=== PATIENT | female | born 1985 | race Asian ===

== ENCOUNTER 2018-09-01 22:18 | Emergency (ER) | payer OTHER ==
[~2018-09-01] VITALS: Ht 160 cm; Wt 88.9 kg
[2018-09-01 22:26] VITALS: BP 114/74
[2018-09-01] MEDS ORDERED: ACETAMINOPHEN 325 MG TAB PO ONE (22:30)
--- NOTE | 2018-09-01 22:37 | NUR ---
PT TAKEN TO BED 8
--- NOTE | 2018-09-01 22:55 | NUR ---
C/O SORETHROAT AND TORRES X 2 DAYS W/ WEAKNESS X 12 HOURS.PT DENIES N/V/D; SKIN IS INTACT, PALE/WARM/DRY; AAOX4, PERRL, WITH EVEN AND STEADY GAIT; LUNGS CLEAR BL, BREATHING UNLABORED; HR EVEN AND REGULAR, BL PERIPHERAL PULSES PRESENT; BS ACTIVE X4, NO TENDERNESS TO PALPATION. PT DENIES ANY SOB, OR COUGH AT THIS TIME; PT STATES 5/10 PAIN AT THIS TIME; VSS; PATIENT POSITIONED FOR COMFORT; HOB ELEVATED; BEDRAILS UP X2; BED DOWN.
--- NOTE | 2018-09-01 23:41 | NUR ---
Dr. Plascencia evaluating patient at bedside.
[2018-09-01] MEDS ORDERED: NACL 0.9% 1,000 ML IV ONE (23:50)
[2018-09-01] MEDS ORDERED: ONDANSETRON 4 MG/2 ML VIAL IVP ONE (23:50)
[2018-09-01] MEDS ORDERED: KETOROLAC 30 MG/ML VIAL IVP ONE (23:50)
--- NOTE | 2018-09-02 01:14 | NUR ---
Patient discharged with v/s stable. Written and verbal after care instructions given and explained. Patient alert, oriented and verbalized understanding of instructions. Ambulatory with steady gait. All questions addressed prior to discharge. ID band removed. Patient advised to follow up with PMD. Rx of TAMIFLU 75MG, PRENISONE 20MG, ZOFRAN 8MG, MOTRIN 800MG, NORCO 5MG-325MG given. Patient educated on indication of medication including possible reaction and side effects. Opportunity to ask questions provided and answered.
[2018-09-02 01:16] VITALS: BP 94/52
== END 2018-09-02 01:14 | disposition home or self-care (01) ==
LOC: MED 22:18
DX: J11.1 Influenza due to unidentified influenza virus with other respiratory manifestations (principal)
CPT/HCPCS: 96374; 96375; 99283; J1885; J2405; J7030

== ENCOUNTER 2022-12-08 05:06 | Emergency (ER) | payer OTHER ==
[~2022-12-08] VITALS: Ht 160 cm; Wt 108.0 kg
[2022-12-08 05:07] VITALS: BP 145/91
--- NOTE | 2022-12-08 05:20 | NUR ---
c/o vaginal bleeding that started at 4 am. per pt, 15 weeks . denies pmhx, denies allergies.
--- NOTE | 2022-12-08 05:20 | NUR ---
pt to bed 8
[2022-12-08] MEDS ORDERED: NACL 0.9% 1,000 ML IV ONE (05:25)
--- NOTE | 2022-12-08 05:27 | NUR ---
Patient being evaluated by physician at bedside.
--- NOTE | 2022-12-08 06:04 | NUR ---
ULTRASOUND AT BEDSIDE
[2022-12-08 06:06] LABS: BASOPHILS % (AUTO) 0.3 % (0.0-2.0); EOSINOPHILS # (AUTO) 0.1 K/uL (0-0.4); EOSINOPHILS % (AUTO) 1.2 % (0.0-4.0); HEMATOCRIT 34.4 % (36-48); HEMOGLOBIN 11.3 g/dL (12.0-16.0); MEAN CORPUSCULAR HEMOGLOBIN 28 pg (27-31); MEAN CORPUSCULAR HGB CONC 33 g/dL (33-37); MEAN CORPUSCULAR VOLUME 86.6 fL (80-94); MONOCYTES # (AUTO) 0.6 K/uL (0.8-1.0); MONOCYTES % (AUTO) 6.1 % (1.7-9.3); NEUTROPHILS # (AUTO) 7.3 K/uL (1.8-7.7); NEUTROPHILS % (AUTO) 72.4 % (42.2-75.2); PLATELET COUNT (AUTO) 234 K/uL (140-450); RED BLOOD CELL COUNT(AUTO) 3.97 MIL/uL (4.20-5.40); RED CELL DISTRIBUTION WIDTH 13.7 % (11.6-13.7); WHITE BLOOD COUNT (AUTO) 10.1 K/uL (4.8-10.8)
[2022-12-08 06:47] LABS: CARBON DIOXIDE 25.5 mmol/L (21-32); CREATININE 0.6 mg/dL (0.6-1.3); POTASSIUM 3.5 mmol/L (3.5-5.1); TOTAL BILIRUBIN 0.3 mg/dL (0.0-1.0)
[2022-12-08 07:14] LABS: APPEARANCE,URINE CLEAR (CLEAR); BILIRUBIN,URINE NEGATIVE (NEGATIVE); BLOOD, URINE 3+ (NEGATIVE); COLOR,URINE YELLOW (YELLOW); LEUKOCYTE ESTERASE ,URINE NEGATIVE (NEGATIVE); NITRITE, URINE NEGATIVE (NEGATIVE); PH,URINE 7.5 (5.0-9.0); UGLUCOSE NEGATIVE (NEGATIVE)
[2022-12-08 07:46] VITALS: BP 115/67
[2022-12-08] MEDS ORDERED: ACETAMINOPHEN 325 MG TAB PO ONE (08:10)
--- NOTE | 2022-12-08 08:15 | NUR ---
PT C/O 9/10 PAIN AT THIS TIME. TOMMYD MADE AWARE
--- NOTE | 2022-12-08 08:22 | NUR ---
PT AMBULATED TO RESTROOM
[2022-12-08 08:40] LABS: RBC,URINE 0-5 /HPF (0-5); WBC,URINE 0-5 /HPF (0-5)
[2022-12-08 08:41] LABS: TRICHOMONAS,URINE None Seen /HPF (None Seen); YEAST,URINE None Seen /HPF (None Seen)
[2022-12-08] MEDS ORDERED: CEPH-588 PO (09:16)
== END 2022-12-08 09:43 | disposition home or self-care (01) ==
LOC: MED 05:06
DX: O30.042 Twin pregnancy, dichorionic/diamniotic, second trimester (principal); O20.0 Threatened abortion; Z3A.15 15 weeks gestation of pregnancy
CPT/HCPCS: 36415; 76805; 76817; 80053; 81001; 84702; 85025; 86900; 86901; 96360; 99284; Q0092; J7030